=== PATIENT | male | born 1990 | race Caucasian/White ===

== ENCOUNTER 2021-07-19 14:49 | Emergency (ER) | payer BC ==
[2021-07-19 15:07] LABS: BASO # 0.07 (0.02-0.10); EOS # 0.29 (0.04-0.40); EOS % 5.8 % (0.0-4.0); HEMATOCRIT 47.5 % (42.0-52.0); HEMOGLOBIN 16.3 g/dL (13.5-18.0); LYMPH# 2.01 (1.50-4.00); MEAN CELL VOLUME 94 fl (78-100); MEAN CORPUSCULAR HEMOGLOBIN 32 pg (27-31); MEAN CORPUSCULAR HGB CONC 34 g/dL (33-37); MEAN PLATELET VOLUME 10.8 fl (7.4-10.4); NEU # 2.27 (1.40-6.50); PLATELET COUNT 187 K/mm3 (130-400); RED BLOOD COUNT 5.08 M/mm3 (4.20-5.60); RED CELL DISTRIBUTION WIDTH 12.1 % (11.5-14.5)
[2021-07-19 15:22] LABS: ALBUMIN 4.7 g/dL (3.5-5.0)
[2021-07-19 15:23] LABS: POTASSIUM 4.1 mmol/L (3.5-5.1); SODIUM 140 mmol/L (136-145)
[2021-07-19 15:24] LABS: CALCIUM 9.5 mg/dL (8.3-10.5)
[2021-07-19 15:25] LABS: GLUCOSE 88 mg/dL (75-110); TOTAL PROTEIN 8.5 g/dL (6.4-8.3)
[2021-07-19 15:26] LABS: CARBON DIOXIDE 20 mmol/L (22-29)
[2021-07-19 15:30] LABS: AST-SGOT 218 U/L (5-34)
[2021-07-19 15:32] LABS: ALT/SGPT 254 U/L (0-55); LIPASE 28 U/L (8-78)
[2021-07-19 15:53] LABS: TROPONIN-I < 0.03 ng/mL (<0.030)
[2021-07-19 16:25] VITALS: BP 146/101
== END 2021-07-19 16:20 | disposition home or self-care (01) ==
LOC: ED 14:49
PROVIDERS: Physician Assistant
DX: R07.89 Other chest pain (principal); R94.5 Abnormal results of liver function studies; I10 Essential (primary) hypertension; F17.220 Nicotine dependence, chewing tobacco, uncomplicated